=== PATIENT | female | born 1970 | race Caucasian/White ===

== ENCOUNTER → 2021-02-22 | Outpatient (CLI) | payer OTHER ==
[~2021-02-22] MED LIST: ATIVAN1 MG PO; ATORVASTATIN CA40 MG PO; AUGMENTIN 875-1 EACH PO; BASAGLAR K100 UNIT/1 SC; CARTIA XT120 MG PO; CLARITIN 10MG T10 MG PO; DICYCLOMINE HCL20 MG PO; ELIQUIS5 MG PO; FUROSEMIDE40 MG PO; GABAPENTIN300 MG PO; GLUCOTROL10 MG PO; INSULIN SC; IRON TABLET PO; JANUVIA100 MG PO; LEVOXYL75 MCG PO; LIPITOR10 MG PO; LISINOPRIL20 MG PO; MACROBID 100 M100 MG PO; MELATONIN5 M2 PO; METFORMIN HCL1000 MG PO; MONTELUKAST SOD10 MG PO; NOVOLOG FL100 UNIT/1 INJ; ONCE DAILY1 EACH PO; PAXIL30 MG PO; PROBIOTIC1 EAC2 PO; PROTONIX40 MG PO; PROVENTIL HFA 61 INH INH; TOPROL XL100 MG PO; Viscous Lidocaine 2%
[2021-02-22 10:07] LABS: HEMOGLOBIN 16.6 gm/dl (12.3-15.3); RED BLOOD COUNT 5.81 M/UL (4.00-5.10); WHITE BLOOD COUNT 13.9 K/UL (4.5-11.0)
[2021-02-22 10:57] LABS: BUN/CREATININE RATIO 14 (0-10)
[2021-02-24 10:14] LABS: CREATININE, URINE 70.7 mg/dL (Not Estab.)
== END ==
LOC: RAD 08:53
PROVIDERS: Family Medicine
DX: M79.672 Pain in left foot (principal); E03.9 Hypothyroidism, unspecified; E78.2 Mixed hyperlipidemia; E11.9 Type 2 diabetes mellitus without complications; D50.9 Iron deficiency anemia, unspecified; M77.52 Other enthesopathy of left foot and ankle; M19.072 Primary osteoarthritis, left ankle and foot; M25.872 Other specified joint disorders, left ankle and foot
CPT/HCPCS: 36415; 73630; 80053; 80061; 82043; 82570; 82728; 83036; 83540; 83550; 84439; 84443; 85027; 85045

== ENCOUNTER → 2021-05-02 | Outpatient (CLI) | payer OTHER ==
[2021-05-02 08:16] LABS: HEMOGLOBIN 16.1 gm/dl (12.3-15.3); RED BLOOD COUNT 5.78 M/UL (4.00-5.10); WHITE BLOOD COUNT 13.5 K/UL (4.5-11.0)
[2021-05-02 08:33] LABS: BUN/CREATININE RATIO 13 (0-10)
== END ==
LOC: LAB 07:20
PROVIDERS: Family Medicine
DX: I10 Essential (primary) hypertension (principal); D72.829 Elevated white blood cell count, unspecified
CPT/HCPCS: 36415; 80048; 85027

== ENCOUNTER → 2021-07-08 | Outpatient (CLI) | payer OTHER ==
[2021-07-08 06:40] LABS: HEMOGLOBIN 15.9 gm/dl (12.3-15.3); RED BLOOD COUNT 5.66 M/UL (4.00-5.10); WHITE BLOOD COUNT 13.7 K/UL (4.5-11.0)
[2021-07-08 07:30] LABS: BUN/CREATININE RATIO 15 (0-10)
[2021-07-09 09:14] LABS: CREATININE, URINE 65.6 mg/dL (Not Estab.)
== END ==
LOC: LAB 05:44
PROVIDERS: Family Medicine
DX: E03.9 Hypothyroidism, unspecified (principal); E78.2 Mixed hyperlipidemia; D72.829 Elevated white blood cell count, unspecified; E11.9 Type 2 diabetes mellitus without complications; Z79.4 Long term (current) use of insulin
CPT/HCPCS: 36415; 80053; 80061; 82043; 82570; 83036; 84439; 84443; 85027

== ENCOUNTER → 2021-08-08 | Outpatient (CLI) | payer OTHER ==
[2021-08-08 07:58] LABS: BUN/CREATININE RATIO 16 (0-10)
== END ==
LOC: LAB 06:53
PROVIDERS: Family Medicine
DX: I10 Essential (primary) hypertension (principal)
CPT/HCPCS: 36415; 80048

== ENCOUNTER → 2021-10-25 | Outpatient (CLI) | payer OTHER ==
[2021-10-25 09:41] LABS: HEMOGLOBIN 15.1 gm/dl (12.3-15.3); RED BLOOD COUNT 5.45 M/UL (4.00-5.10); WHITE BLOOD COUNT 14.3 K/UL (4.5-11.0)
[2021-10-25 10:03] LABS: BUN/CREATININE RATIO 14 (0-10)
== END ==
LOC: LAB 09:03
PROVIDERS: Family Medicine
DX: E78.2 Mixed hyperlipidemia (principal); E11.42 Type 2 diabetes mellitus with diabetic polyneuropathy; Z79.4 Long term (current) use of insulin; F41.1 Generalized anxiety disorder; Z79.899 Other long term (current) drug therapy
CPT/HCPCS: 80053; 80061; 80307; 82570; 83036; 84156; 85027

== ENCOUNTER → 2022-03-30 | Outpatient (CLI) | payer OTHER ==
[2022-03-30 06:22] LABS: HEMOGLOBIN 15.8 gm/dl (12.3-15.3); RED BLOOD COUNT 5.41 M/UL (4.00-5.10); WHITE BLOOD COUNT 12.5 K/UL (4.5-11.0)
[2022-03-30 06:53] LABS: BUN/CREATININE RATIO 16 (0-10)
== END ==
LOC: LAB 05:20
PROVIDERS: Family Medicine
DX: E11.9 Type 2 diabetes mellitus without complications (principal); E03.9 Hypothyroidism, unspecified; E78.2 Mixed hyperlipidemia; Z79.4 Long term (current) use of insulin
CPT/HCPCS: 36415; 80053; 80061; 80307; 82570; 83036; 83735; 84156; 84439; 84443; 85027